=== PATIENT | female | born 1960 | race Two or more races ===

== ENCOUNTER 2018-06-10 10:53 | Outpatient (CLI) | payer OTHER ==
[~2018-06-10 10:53] MED LIST: DICLOFENAC POTA50 MG PO; KETO10TA2 PO; MAXALT MLT10 MG/TAB PO; NORFLEX100MG PO
== END 2018-06-10 11:00 | disposition home or self-care (01) ==
LOC: LAB 10:53
DX: J11.1 Influenza due to unidentified influenza virus with other respiratory manifestations (principal); J18.0 Bronchopneumonia, unspecified organism; J06.9 Acute upper respiratory infection, unspecified